=== PATIENT | female | born 1985 | race Two or more races ===

== ENCOUNTER 2017-08-18 10:31 | Emergency (ER) | payer OTHER ==
[~2017-08-18] VITALS: Ht 157.5 cm; Wt 81.6 kg
[~2017-08-18 10:31] MED LIST: CITRIC ACID PO; DICLEGIS DR 101 EACH; FOLIC ACID1 MG; PEPCID20 MG PO; Procardia 10MG CAP PO; SODIUM CITRATE PO; SUPER B-COMPL400 MCG; VISTARIL50 MG PO; Vistaryl 50MG CAP PO; ZOFRAN8 MG PO
[2017-08-18] MEDS ORDERED: NORFLEX100MG PO (14:37)
[2017-08-18] MEDS ORDERED: KETO10TA2 PO (14:37)
== END 2017-08-18 15:50 | disposition home or self-care (01) ==
LOC: ER 10:31
DX: M54.2 Cervicalgia (principal); M54.5 Low back pain